=== PATIENT | male | born 1980 | race Caucasian/White ===

== ENCOUNTER 2018-08-14 21:34 | Emergency (ER) | payer BC, OTHER ==
[2018-08-14 21:40] VITALS: BP 131/80; PULSE 64; TEMP 98.3; BMI 27.2
--- NOTE | 2018-08-14 21:56 | PDOC ---
History of Present Illness - General Chief Complaint: Chest Pain Stated Complaint: CHEST PAIN Time Seen by Provider: 08/14/18 21:56 - History of Present Illness Initial Comments: 38 year old male in very good shape (avid gym goer) with chronic back pain presenting with right sided temporal swelling, paresthesias over that area, and palpitations. Patient stated that his noticed some swelling over that side of his head and then he began to feel some tingling in the same area. After the tingling started he had some palpitations. He has had palpitations before but never with these scalp symptoms. Patient denies any headache, visual symptoms, nausea, vomiting, diarrhea, FBD, gait ataxia, or other symptoms. Denies any substance/ stimulant abuse. 08/14/18 23:23 Past History - Past Medical History Allergies/Adverse Reactions: Allergies Allergy/AdvReac Type Severity Reaction Status Date / Time No Known Drug Allergies Allergy Verified 08/14/18 21:38 Home Medications: Ambulatory Orders NK [No Known Home Medication] 08/14/18 COPD: No - Surgical History Orthopedic Surgery: Yes - Immunization History Immunization Up to Date: Yes - Suicide/Smoking/Psychosocial Hx Smoking History: Never smoked Hx Alcohol Use: Yes (occassion) Drug/Substance Use Hx: No Substance Use Type: None Review of Systems - Review of Systems Constitutional: No: Chills, Diaphoresis, Fever HEENTM: No: Blurred Vision, Tearing, Recent change in vision, Double Vision Respiratory: No: Cough, Orthopnea, Shortness of Breath Cardiac (ROS): No: Chest Pain, Edema, Irregular Heart Rate ABD/GI: No: Diarrhea, Nausea, Vomiting : No: Burning, Dysuria, Discharge Musculoskeletal: No: Joint Pain, Joint Swelling, Muscle Pain Integumentary: Yes: Lumps. No: Bruising, Erythema, Flushing Neurological: Yes: Tingling. No: Numbness, Paresthesia, Tremors, Weakness Psychiatric: No: Anxiety, Depression Hematologic/Lymphatic: No: Anemia, Blood Clots, Easy Bleeding *Physical Exam - Vital Signs Last Vital Signs Temp Pulse Resp BP Pulse Ox 98.3 F 64 18 131/80 100 08/14/18 21:35 08/14/18 21:35 08/14/18 21:35 08/14/18 21:35 08/14/18 21:35 - Physical Exam General Appearance: Yes: Nourished, Appropriately Dressed. No: Apparent Distress HEENT: positive: EOMI, MCKENZIE, Normal Voice. negative: Normal ENT Inspection ( Slightly larger right temporal masseter muscle than left side. No fluctuance, erythema, induration, ) Neck: positive: Trachea midline, Normal Thyroid, Supple. negative: Tender, Rigid Respiratory/Chest: positive: Lungs Clear, Normal Breath Sounds. negative: Chest Tender, Respiratory Distress Cardiovascular: positive: Regular Rhythm, Regular Rate Gastrointestinal/Abdominal: positive: Normal Bowel Sounds, Flat, Soft. negative : Tender Lymphatic: negative: Adenopathy, Tenderness Musculoskeletal: positive: Normal Inspection. negative: Decreased Range of Motion, Muscle Spasm Extremity: positive: Normal Capillary Refill, Normal Inspection, Normal Range of Motion Integumentary: positive: Normal Color, Dry, Warm Neurologic: positive: [employer] II-XII NML intact, Fully Oriented, Alert, Normal Mood/ Affect, Normal Response, Motor Strength 5/5 Medical Decision Making - Medical Decision Making 38 year old male with no PMH presenting with right sided temporal paresthesias and palpitations. EKG demonstrating rate 61, IA 204, QRS 112, QTc 424, and right axis deviation with incomplete RBBB, TWI in III and V!. TWI in III new but V1 is old along with incomplete RBBB. Patient's temporal area is slightly larger on the right but this is clearly a muscular area without any sign of mass or infection, Will DC with PCP follow up and cards follow up. 08/14/18 23:23 *DC/Admit/Observation/Transfer Diagnosis at time of Disposition: Palpitations - Discharge Dispostion Disposition: HOME Condition at time of disposition: Stable Decision to Admit order: No - Referrals Referrals: Candy Thorne [Primary Care Provider] - Diego Powers MD [Staff Physician] - - Patient Instructions Printed Discharge Instructions: DI for Atypical Chest Pain Additional Instructions: Please stay hydrated and please follow up with your PCP for your issues. Please also make an appointment with the security police. Please return top the ED if you have new or worsening symptoms. - Post Discharge Activity
--- NOTE | 2018-08-14 23:22 | PDOC ---
Attending Attestation - Resident Resident Name: Sravan Edge - ED Attending Attestation I have performed the following: I have examined & evaluated the patient, The case was reviewed & discussed with the resident, I agree w/resident's findings & plan, Exceptions are as noted - HPI HPI: 08/14/18 23:22 The patient is a 38 year old male, with no significant past medical history, who presents to the emergency department with, right sided head swelling with associated paresthesias. As per patient, upon noticing this he began to experience palpitations without chest pain or shortness of breath. Allergies: NKDA Primary Care Physician: Dr. Thorne <Serge Covarrubias - Last Filed: 08/14/18 23:22> - ED Attending Attestation I have performed the following: I have examined & evaluated the patient, The case was reviewed & discussed with the resident, I agree w/resident's findings & plan, Exceptions are as noted - Physicial Exam PE: 08/15/18 00:23 NCAT, PERRL, EOMI Barely perceptible difference in temporal muscles, no erythema, induration, fluctuance - Medical Decision Making 08/15/18 00:24 Well appearing patient with nominal swelling of sabianist w/o pain or tenderness. Started while working out, a/w palpitations. Pt's concern is that he has found evidence of a brain mass. 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 Exam is unremarkable, intracranial mass unlikely diagnosis, no signs of infection, vascular infllamation, currently asymptomatic dc home with pcp follow up <Tiburcio Taylor - Last Filed: 08/15/18 00:27> Attestations - Attestations 08/14/18 23:22 Documentation prepared by Serge Covarrubias, acting as medical scientific officer for Tiburcio Taylor MD. <Serge Covarrubias - Last Filed: 08/14/18 23:22>
--- NOTE | 2018-08-15 12:53 | EKG ---
Test Reason : Blood Pressure : / mmHG Vent. Rate : 061 BPM Atrial Rate : 061 BPM P-R Int : 204 ms QRS Dur : 112 ms QT Int : 422 ms P-R-T Axes : 048 -53 017 degrees QTc Int : 424 ms NORMAL SINUS RHYTHM INCOMPLETE RIGHT BUNDLE BRANCH BLOCK LEFT ANTERIOR FASCICULAR BLOCK POSSIBLE INFERIOR INFARCT (CITED ON OR BEFORE 14-AUG-2018) CANNOT RULE OUT ANTERIOR INFARCT , AGE UNDETERMINED ABNORMAL ECG WHEN COMPARED WITH ECG OF 08-FEB-2015 20:17, NO SIGNIFICANT CHANGE WAS FOUND Confirmed by MD SCOTTY, SANDRA ([id number]) on 08/15/2018 12:52:49 PM Referred By: Confirmed By:SANDRA FAJARDO MD
== END 2018-08-15 00:05 | disposition home or self-care (01) ==
LOC: JER 21:34
DX: R00.2 Palpitations (principal)
CPT/HCPCS: 93005; 93010; 99282-25

== ENCOUNTER 2021-01-07 04:28 | Day surgery (SDC) | payer BC, OTHER ==
[2021-01-01 17:27] VITALS: BMI 26.5
[2021-01-07] MEDS ORDERED: MIDAZOLAM HCL 2 MG/2 ML SINGLE DOSE VIAL ONE ×3 (09:26→09:31)
[2021-01-07] MEDS ORDERED: PROPOFOL 20 ML ONE (09:26)
[2021-01-07] MEDS ORDERED: ROPIVACAINE HCL 0.5% 30ML VIAL ONE (09:30)
[2021-01-07] MEDS ORDERED: ceFAZolin SODIUM 1 GM VIAL ONE (09:58)
[2021-01-07 12:06] VITALS: TEMP 97.8
[2021-01-07 13:11] VITALS: BP 126/74; PULSE 55
== END 2021-01-07 12:45 | disposition home or self-care (01) ==
LOC: JASU-SURG 04:28
PROVIDERS: ATTEND Orthopaedic Surgery
PROC: 0RHJ44Z Insertion of Internal Fixation Device into Right Shoulder Joint, Percutaneous Endoscopic Approach (ICD-10-PCS; 2021-01-07)
PROC: 0RNJ4ZZ Release Right Shoulder Joint, Percutaneous Endoscopic Approach (ICD-10-PCS; principal; 2021-01-07 09:30)
PROC: 0LQ14ZZ Repair Right Shoulder Tendon, Percutaneous Endoscopic Approach (ICD-10-PCS; 2021-01-07 09:30)
DX: M75.101 Unspecified rotator cuff tear or rupture of right shoulder, not specified as traumatic (principal)
CPT/HCPCS: 94760